=== PATIENT | female | born 1980 | race African-American/Black ===

== ENCOUNTER 2022-03-22 12:30 | Inpatient (IN) | payer SELFPAY ==
[~2022-03-22 12:30] MED LIST: ISOVUE-370 76%-LOCM 1 ML ONE; Tenecteplase 50 MG - STEMI KIT ONE
[2022-03-22 12:53] LABS: #Basophils 0.1 thou/uL (0.0-0.2); #Eosinphils 0.5 thou/uL (0.0-0.7); #Lymphocytes 2.2 thou/uL (1.20-3.40); #Monocytes 0.5 thou/uL (0.11-0.59); #Neutrophils 5.3 thou/uL (1.40-6.50); %Basophils 1.1 % (0.0-1.0); %Eosinophils 6.3 % (0.0-10.0); %Lymphocytes 25.8 % (21.0-51.0); %Monocytes 5.3 % (0.0-10.0); %Neutrophils 61.5 % (42.0-75.0); Hemoglobin 14.1 g/dL (12.0-16.0); Mean Corpuscular Hemoglobin 31.3 pg (27.0-31.0); Mean Corpuscular Volume 91.9 fL (78.0-98.0); Mean Platelet Volume 6.6 fL (7.4-10.4); Platelet Count 403 thou/uL (130-400); RBC Distribution Width 11.8 % (11.5-14.5); Red Blood Cell (RBC) Count 4.52 mill/uL (4.20-5.40); White Blood Cell (WBC) Count 8.6 thou/uL (4.8-10.8)
[2022-03-22 13:03] LABS: Prothrombin Time 13.4 sec (12.0-14.7)
[2022-03-22 13:13] LABS: Anion Gap 14 mmol/L (10-20); BUN (Urea Nitrogen) 10 mg/dL (7.0-18.7); Calc. Creatinine Clearance 0 mL/min (70-130); Carbon Dioxide 24 mmol/L (22-29); Chloride 106 mmol/L (98-107); Potassium 3.5 mmol/L (3.5-5.1); Sodium 140 mmol/L (136-145)
[2022-03-22 13:14] LABS: ALT (SGPT) 21 U/L (8-55); AST (SGOT) 18 U/L (5-34); Albumin 4.1 g/dL (3.5-5.0); Alkaline Phosphatase 92 U/L (40-110); Bilirubin, Total 0.5 mg/dL (0.2-1.2); CK (CPK) 72 U/L (29-168); Calcium 9.6 mg/dL (7.8-10.44); Estimated GFR 101; Globulin 3.4 g/dL (2.4-3.5); Glucose 166 mg/dL (70-105); Protein, Total 7.5 g/dL (6.0-8.3)
[2022-03-22] MEDS ORDERED: hydrALAZINE 20 MG/ML VIAL ONE (13:20)
[2022-03-22] MEDS ORDERED: Dextrose 50% Abboject 50 ML SYRINGE SLOW IVP PRN (14:56)
[2022-03-22] MEDS ORDERED: Dextrose 5% in Water 1,000 ML IV PRN (14:56)
[2022-03-22 15:08] LABS: #Basophils 0.2 thou/uL (0.0-0.2); #Eosinphils 0.4 thou/uL (0.0-0.7); #Lymphocytes 2.9 thou/uL (1.20-3.40); #Monocytes 0.5 thou/uL (0.11-0.59); #Neutrophils 5.8 thou/uL (1.40-6.50); %Basophils 1.7 % (0.0-1.0); %Eosinophils 4.5 % (0.0-10.0); %Lymphocytes 29.7 % (21.0-51.0); %Monocytes 4.7 % (0.0-10.0); %Neutrophils 59.4 % (42.0-75.0); Hemoglobin 14.8 g/dL (12.0-16.0); Mean Corpuscular HGB CONC 34.1 g/dL (32.0-36.0); Mean Corpuscular Hemoglobin 31.3 pg (27.0-31.0); Mean Corpuscular Volume 91.7 fL (78.0-98.0); Mean Platelet Volume 6.5 fL (7.4-10.4); Platelet Count 423 thou/uL (130-400); RBC Distribution Width 11.9 % (11.5-14.5); Red Blood Cell (RBC) Count 4.74 mill/uL (4.20-5.40); White Blood Cell (WBC) Count 9.7 thou/uL (4.8-10.8)
[2022-03-22 15:23] LABS: Prothrombin Time 13.4 sec (12.0-14.7)
[2022-03-22 15:30] LABS: ALT (SGPT) 20 U/L (8-55); AST (SGOT) 16 U/L (5-34); Alkaline Phosphatase 91 U/L (40-110); Anion Gap 15 mmol/L (10-20); BUN (Urea Nitrogen) 8 mg/dL (7.0-18.7); Bilirubin, Total 0.5 mg/dL (0.2-1.2); Calc. Creatinine Clearance 0 mL/min (70-130); Calcium 9.8 mg/dL (7.8-10.44); Carbon Dioxide 22 mmol/L (22-29); Chloride 106 mmol/L (98-107); Estimated GFR 109; Globulin 3.4 g/dL (2.4-3.5); Glucose 134 mg/dL (70-105); Potassium 3.5 mmol/L (3.5-5.1); Protein, Total 7.4 g/dL (6.0-8.3); Sodium 139 mmol/L (136-145)
[2022-03-22] MEDS ORDERED: predniSONE 20 MG TAB PO SCH (16:15)
[2022-03-22] MEDS: methylPREDNISolone Sod Succ/PF 125 MG/2 ML VIAL IVP SCH (18:15)
[2022-03-23] MEDS: methylPREDNISolone Sod Succ/PF 125 MG/2 ML VIAL IVP SCH ×5 (00:20→23:12)
[2022-03-23] MEDS ORDERED: Communication Order-Pharmacy FS PRN (09:12)
[2022-03-23] MEDS: Pantoprazole 40 MG VIAL IVP SCH (09:54)
[2022-03-23] MEDS ORDERED: Amlodipine 10 MG TAB PO SCH ×2 (14:00→18:15)
[2022-03-23 15:44] LABS: ALT (SGPT) 16 U/L (8-55); AST (SGOT) 13 U/L (5-34); Albumin 4.1 g/dL (3.5-5.0); Alkaline Phosphatase 95 U/L (40-110); Anion Gap 16 mmol/L (10-20); BUN (Urea Nitrogen) 16 mg/dL (7.0-18.7); Bilirubin, Total 0.6 mg/dL (0.2-1.2); Calc. Creatinine Clearance 147 mL/min (70-130); Carbon Dioxide 23 mmol/L (22-29); Chloride 105 mmol/L (98-107); Estimated GFR 95; Globulin 3.6 g/dL (2.4-3.5); Glucose 192 mg/dL (70-105); Potassium 3.6 mmol/L (3.5-5.1); Protein, Total 7.7 g/dL (6.0-8.3); Sodium 140 mmol/L (136-145)
[2022-03-23 16:02] LABS: Hemoglobin A1c 7.6 % (4.0-6.0)
[2022-03-23 16:05] LABS: Cardiac Risk 5.7 (Less than 4.5)
[2022-03-23] MEDS: Carvedilol 25 MG TAB PO SCH ×2 (20:01→20:09)
[2022-03-23] MEDS: Atorvastatin Calcium 40 MG TAB PO SCH ×2 (20:01→20:11)
[2022-03-23] MEDS: niCARdipine 25 MG in Sodium Chloride 0.9% 250 ML 250 ML IVPB SCH (23:51)
[2022-03-24 04:18] LABS: ALT (SGPT) 14 U/L (8-55); AST (SGOT) 11 U/L (5-34); Alkaline Phosphatase 97 U/L (40-110); Anion Gap 15 mmol/L (10-20); BUN (Urea Nitrogen) 19 mg/dL (7.0-18.7); Bilirubin, Total 0.4 mg/dL (0.2-1.2); Calc. Creatinine Clearance 149 mL/min (70-130); Calcium 9.8 mg/dL (7.8-10.44); Carbon Dioxide 22 mmol/L (22-29); Chloride 106 mmol/L (98-107); Estimated GFR 96; Globulin 3.5 g/dL (2.4-3.5); Glucose 212 mg/dL (70-105); Potassium 3.7 mmol/L (3.5-5.1); Protein, Total 7.5 g/dL (6.0-8.3); Sodium 139 mmol/L (136-145)
[2022-03-24 04:48] LABS: Band 8 % (5-11); Hemoglobin 15.3 g/dL (12.0-16.0); Lymphocytes 4 % (21-51); MDiff Complete? YES; Mean Corpuscular HGB CONC 32.8 g/dL (32.0-36.0); Mean Corpuscular Hemoglobin 30.7 pg (27.0-31.0); Mean Corpuscular Volume 93.5 fL (78.0-98.0); Mean Platelet Volume 6.5 fL (7.4-10.4); Monocytes 2 % (0-10); Neutrophil 86 % (42-75); Platelet Count 457 thou/uL (130-400); RBC Distribution Width 12.3 % (11.5-14.5); Red Blood Cell (RBC) Count 4.97 mill/uL (4.20-5.40); White Blood Cell (WBC) Count 21.3 thou/uL (4.8-10.8)
[2022-03-24] MEDS: methylPREDNISolone Sod Succ/PF 125 MG/2 ML VIAL IVP SCH ×3 (05:09→17:44)
[2022-03-24] MEDS: Insulin Regular 300 UNITS/3 ML VIAL SC PRN ×4 (06:40→20:06)
[2022-03-24] MEDS: Amlodipine 10 MG TAB PO SCH (08:51)
[2022-03-24] MEDS: Pantoprazole 40 MG VIAL IVP SCH (08:51)
[2022-03-24] MEDS: Carvedilol 25 MG TAB PO SCH ×2 (08:51→20:04)
[2022-03-24] MEDS: niCARdipine 25 MG in Sodium Chloride 0.9% 250 ML 250 ML IVPB SCH (08:52)
[2022-03-24] MEDS ORDERED: hydrALAZINE 20 MG/ML VIAL SLOW IVP PRN (09:28)
[2022-03-24] MEDS ORDERED: metFORMIN 500 MG TAB PO SCH (10:00)
[2022-03-24] MEDS: metFORMIN 500 MG TAB PO SCH (17:44)
[2022-03-24] MEDS: Atorvastatin Calcium 40 MG TAB PO SCH (20:04)
[2022-03-25] MEDS: methylPREDNISolone Sod Succ/PF 125 MG/2 ML VIAL IVP SCH ×4 (00:21→17:31)
[2022-03-25 00:52] LABS: Amphetamine Not Detected (NotDetected); Barbiturates Screen Not Detected (NotDetected); Benzodiazepine Screen Not Detected (NotDetected); Cocaine Metabolite Screen Not Detected (NotDetected); Methadone Not Detected (NotDetected); Methamphetamine Not Detected (NotDetected); Opiate Screen Not Detected (NotDetected); Oxycodone Screen Not Detected (NotDetected); Phencyclidine (PCP) Not Detected (NotDetected); THC/Cannabinoid Screen Not Detected (NotDetected); Tricyclic Screen Not Detected (NotDetected)
[2022-03-25] MEDS: Insulin Regular 300 UNITS/3 ML VIAL SC PRN ×4 (06:14→21:03)
[2022-03-25 07:24] LABS: #Lymphocytes 1.1 thou/uL (1.20-3.40); #Monocytes 0.5 thou/uL (0.11-0.59); #Neutrophils 17.3 thou/uL (1.40-6.50); %Basophils 0.2 % (0.0-1.0); %Eosinophils 0.2 % (0.0-10.0); %Lymphocytes 5.9 % (21.0-51.0); %Monocytes 2.4 % (0.0-10.0); %Neutrophils 91.2 % (42.0-75.0); Hemoglobin 15.2 g/dL (12.0-16.0); Mean Corpuscular HGB CONC 34.2 g/dL (32.0-36.0); Mean Corpuscular Hemoglobin 31.8 pg (27.0-31.0); Mean Corpuscular Volume 93.1 fL (78.0-98.0); Mean Platelet Volume 6.5 fL (7.4-10.4); Platelet Count 444 thou/uL (130-400); RBC Distribution Width 12.3 % (11.5-14.5); Red Blood Cell (RBC) Count 4.78 mill/uL (4.20-5.40); White Blood Cell (WBC) Count 18.9 thou/uL (4.8-10.8)
[2022-03-25 07:47] LABS: Anion Gap 16 mmol/L (10-20); BUN (Urea Nitrogen) 33 mg/dL (7.0-18.7); Calc. Creatinine Clearance 124 mL/min (70-130); Calcium 9.5 mg/dL (7.8-10.44); Carbon Dioxide 22 mmol/L (22-29); Chloride 107 mmol/L (98-107); Estimated GFR 75; Glucose 193 mg/dL (70-105); Potassium 4.1 mmol/L (3.5-5.1); Sodium 141 mmol/L (136-145)
[2022-03-25] MEDS: Amlodipine 10 MG TAB PO SCH (08:49)
[2022-03-25] MEDS: metFORMIN 500 MG TAB PO SCH (08:49)
[2022-03-25] MEDS: Pantoprazole 40 MG VIAL IVP SCH (08:50)
[2022-03-25] MEDS: Carvedilol 25 MG TAB PO SCH ×2 (08:50→21:02)
[2022-03-25] MEDS ORDERED: Losartan 25 MG TAB PO SCH (09:00)
[2022-03-25] MEDS ORDERED: Lorazepam 0.5 MG TAB PO SCH ×2 (09:45→10:30)
[2022-03-25 13:07] VITALS: BMI 35.4
[2022-03-25 14:30] LABS: ANA Symphony (Qualitative) Equivocal: See Note (Negative); ANA Symphony (Quantitative) 0.7 Ratio (< 0.7 Negative); dsDNA IgG Antibody 0.9 IU/mL (<10 Negative)
[2022-03-25 14:42] LABS: Cytoplasmic (C-ANCA) <1:20 titer (Neg:<1:20); Perinuclear (P-ANCA) <1:20 titer (Neg:<1:20)
[2022-03-25] MEDS: Atorvastatin Calcium 40 MG TAB PO SCH (21:02)
[2022-03-26] MEDS: Insulin Regular 300 UNITS/3 ML VIAL SC PRN ×3 (06:21→21:57)
[2022-03-26] MEDS ORDERED: methylPREDNISolone Sod Succ/PF 125 MG/2 ML VIAL IVP SCH (09:00)
[2022-03-26] MEDS: Losartan 25 MG TAB PO SCH (09:32)
[2022-03-26] MEDS: Pantoprazole 40 MG VIAL IVP SCH (09:32)
[2022-03-26] MEDS: metFORMIN 500 MG TAB PO SCH (09:32)
[2022-03-26] MEDS: Carvedilol 25 MG TAB PO SCH ×2 (09:33→21:57)
[2022-03-26] MEDS: Amlodipine 10 MG TAB PO SCH (09:33)
[2022-03-26] MEDS ORDERED: Aspirin Chewable 81 MG TAB PO SCH (16:15)
[2022-03-26 16:18] LABS: INR-International Normal Ratio 1.1; PTT 33.2 sec (22.9-36.1); Prothrombin Time 14.4 sec (12.0-14.7)
[2022-03-26 16:19] LABS: D-Dimer Test 0.45 *mcg/mL (0.27-0.43)
[2022-03-26 16:20] LABS: Complement-C4 31.9 mg/dL (15-57)
[2022-03-26 16:49] LABS: Homocysteine 8.96 umol/L (5.08-15.39); Thyroid Stimulating Hormone 0.1422 uIU/mL (0.35-4.94)
[2022-03-26] MEDS: Atorvastatin Calcium 40 MG TAB PO SCH (21:57)
[2022-03-27] MEDS ORDERED: Aspirin 81 mg Enteric Coated Tablet PO SCH (09:00)
[2022-03-27] MEDS: Losartan 25 MG TAB PO SCH (09:41)
[2022-03-27] MEDS: Amlodipine 10 MG TAB PO SCH (09:41)
[2022-03-27] MEDS: metFORMIN 500 MG TAB PO SCH (09:41)
[2022-03-27] MEDS: Pantoprazole 40 MG VIAL IVP SCH (09:41)
[2022-03-27] MEDS: Aspirin Chewable 81 MG TAB PO SCH (09:42)
[2022-03-27] MEDS: Carvedilol 25 MG TAB PO SCH ×2 (09:57→20:53)
[2022-03-27] MEDS: Insulin Regular 300 UNITS/3 ML VIAL SC PRN ×2 (12:43→17:26)
[2022-03-27] MEDS: Atorvastatin Calcium 40 MG TAB PO SCH (20:53)
[2022-03-28] MEDS: Amlodipine 10 MG TAB PO SCH (08:50)
[2022-03-28] MEDS: Pantoprazole 40 MG VIAL IVP SCH (08:51)
[2022-03-28] MEDS: Losartan 25 MG TAB PO SCH (08:51)
[2022-03-28] MEDS: Carvedilol 25 MG TAB PO SCH ×2 (08:51→21:02)
[2022-03-28] MEDS: metFORMIN 500 MG TAB PO SCH (10:38)
[2022-03-28] MEDS: Aspirin Chewable 81 MG TAB PO SCH (10:38)
[2022-03-28 10:55] LABS: CCP IgG Antibody 1.3 EliAU/mL (<7 Negative); Cardiolipin IgA Ab 2.5 APL-U/mL (<14 Negative); Cardiolipin IgG Ab 1.1 GPL-U/mL (<10 Negative); Cardiolipin IgM Ab 6.4 MPL-U/mL (<10 Negative); EliA APS New Method **** NEW METHOD ****; Rheumatoid Factor IgM Antibody 4.9 IU/mL (<3.5 Negative); SSA/Ro IgG Antibody 2.3 EliAU/mL (<7 Negative); SSB/La IgG Antibody Less than 0.3 EliAU/mL (<7 Negative)
[2022-03-28 10:58] LABS: RNP70 IgG Antibody Less than 0.3 EliAU/mL (<7 Negative)
[2022-03-28] MEDS ORDERED: PROPOFOL 200 MG/20 ML VIAL ONE (14:10)
[2022-03-28] MEDS ORDERED: Lidocaine 1% w/Epinephrine 1:100K 20 ML VIAL ONE (15:45)
[2022-03-28] MEDS ORDERED: Enoxaparin Sodium 40 MG/0.4 ML SYRINGE SC SCH (21:00)
[2022-03-28] MEDS: Atorvastatin Calcium 40 MG TAB PO SCH (21:02)
[2022-03-29] MEDS: Acetaminophen 325 MG TAB PO PRN (09:39)
[2022-03-29] MEDS: Carvedilol 25 MG TAB PO SCH ×2 (09:41→21:18)
[2022-03-29] MEDS: Amlodipine 10 MG TAB PO SCH (09:41)
[2022-03-29] MEDS: Losartan 25 MG TAB PO SCH (09:41)
[2022-03-29] MEDS: Aspirin Chewable 81 MG TAB PO SCH (09:41)
[2022-03-29] MEDS: Enoxaparin Sodium 40 MG/0.4 ML SYRINGE SC SCH (09:42)
[2022-03-29] MEDS: metFORMIN 500 MG TAB PO SCH (09:42)
[2022-03-29] MEDS: Pantoprazole 40 MG VIAL IVP SCH (09:42)
[2022-03-29] MEDS: Insulin Regular 300 UNITS/3 ML VIAL SC PRN (13:22)
[2022-03-29] MEDS ORDERED: Senokot 8.6 MG TAB PO PRN (13:40)
[2022-03-29] MEDS ORDERED: Docusate 100 MG CAP PO PRN (13:41)
[2022-03-29] MEDS ORDERED: Clopidogrel Bisulfate 75 MG TAB PO SCH (16:30)
[2022-03-29] MEDS: Atorvastatin Calcium 40 MG TAB PO SCH (21:18)
[2022-03-30] MEDS: Losartan 25 MG TAB PO SCH (08:33)
[2022-03-30] MEDS: Carvedilol 25 MG TAB PO SCH ×2 (08:33→21:18)
[2022-03-30] MEDS: Amlodipine 10 MG TAB PO SCH (08:33)
[2022-03-30] MEDS: metFORMIN 500 MG TAB PO SCH (08:33)
[2022-03-30] MEDS: Clopidogrel Bisulfate 75 MG TAB PO SCH (08:33)
[2022-03-30] MEDS: Polyethylene Glycol 3350 17 GM Packet PO SCH (08:34)
[2022-03-30] MEDS: Pantoprazole 40 MG VIAL IVP SCH (08:34)
[2022-03-30] MEDS: Aspirin Chewable 81 MG TAB PO SCH (08:34)
[2022-03-30] MEDS: Enoxaparin Sodium 40 MG/0.4 ML SYRINGE SC SCH (08:34)
[2022-03-30 13:06] LABS: Factor VIII Test 223.1 % ACTIVE (56-157)
[2022-03-30 14:12] LABS: Protein C Activity 143 % (78-152)
[2022-03-30] MEDS: Atorvastatin Calcium 40 MG TAB PO SCH (21:18)
[2022-03-31] MEDS: Insulin Regular 300 UNITS/3 ML VIAL SC PRN (05:56)
[2022-03-31] MEDS: Losartan 25 MG TAB PO SCH (10:19)
[2022-03-31] MEDS: Enoxaparin Sodium 40 MG/0.4 ML SYRINGE SC SCH (10:19)
[2022-03-31] MEDS: Amlodipine 10 MG TAB PO SCH (10:20)
[2022-03-31] MEDS: Carvedilol 25 MG TAB PO SCH ×2 (10:20→20:27)
[2022-03-31] MEDS: metFORMIN 500 MG TAB PO SCH (10:20)
[2022-03-31] MEDS: Clopidogrel Bisulfate 75 MG TAB PO SCH (10:20)
[2022-03-31] MEDS: Aspirin Chewable 81 MG TAB PO SCH (10:20)
[2022-03-31] MEDS: Polyethylene Glycol 3350 17 GM Packet PO SCH (10:21)
[2022-03-31] MEDS: Pantoprazole 40 MG VIAL IVP SCH (10:22)
[2022-03-31] MEDS: Atorvastatin Calcium 40 MG TAB PO SCH (20:26)
[2022-04-01] MEDS: Insulin Regular 300 UNITS/3 ML VIAL SC PRN (05:46)
[2022-04-01] MEDS: Enoxaparin Sodium 40 MG/0.4 ML SYRINGE SC SCH (09:31)
[2022-04-01] MEDS: Aspirin Chewable 81 MG TAB PO SCH (09:31)
[2022-04-01] MEDS: Carvedilol 25 MG TAB PO SCH ×2 (09:31→21:08)
[2022-04-01] MEDS: Amlodipine 10 MG TAB PO SCH (09:32)
[2022-04-01] MEDS: Losartan 25 MG TAB PO SCH (09:32)
[2022-04-01] MEDS: metFORMIN 500 MG TAB PO SCH (09:32)
[2022-04-01] MEDS: Clopidogrel Bisulfate 75 MG TAB PO SCH (09:32)
[2022-04-01] MEDS: Polyethylene Glycol 3350 17 GM Packet PO SCH (09:35)
[2022-04-01] MEDS: Pantoprazole 40 MG VIAL IVP SCH (09:36)
[2022-04-01 11:32] LABS: #Eosinphils 0.2 thou/uL (0.0-0.7); #Lymphocytes 2.4 thou/uL (1.20-3.40); %Basophils 0.2 % (0.0-1.0); %Eosinophils 1.6 % (0.0-10.0); %Lymphocytes 22.9 % (21.0-51.0); %Monocytes 9.1 % (0.0-10.0); %Neutrophils 66.2 % (42.0-75.0); Hemoglobin 14.1 g/dL (12.0-16.0); Mean Corpuscular HGB CONC 33.7 g/dL (32.0-36.0); Mean Corpuscular Hemoglobin 31.5 pg (27.0-31.0); Mean Corpuscular Volume 93.4 fL (78.0-98.0); Mean Platelet Volume 6.9 fL (7.4-10.4); Platelet Count 312 thou/uL (130-400); RBC Distribution Width 11.8 % (11.5-14.5); Red Blood Cell (RBC) Count 4.48 mill/uL (4.20-5.40); White Blood Cell (WBC) Count 10.5 thou/uL (4.8-10.8)
[2022-04-01 11:53] LABS: ALT (SGPT) 18 U/L (8-55); AST (SGOT) 14 U/L (5-34); Albumin 3.3 g/dL (3.5-5.0); Alkaline Phosphatase 94 U/L (40-110); Anion Gap 13 mmol/L (10-20); BUN (Urea Nitrogen) 12 mg/dL (7.0-18.7); Calc. Creatinine Clearance 158 mL/min (70-130); Calcium 9.1 mg/dL (7.8-10.44); Carbon Dioxide 24 mmol/L (22-29); Chloride 101 mmol/L (98-107); Estimated GFR 101; Globulin 3.2 g/dL (2.4-3.5); Glucose 187 mg/dL (70-105); Potassium 4.4 mmol/L (3.5-5.1); Protein, Total 6.5 g/dL (6.0-8.3); Sodium 134 mmol/L (136-145)
[2022-04-01] MEDS: Acetaminophen 325 MG TAB PO PRN (18:36)
[2022-04-01] MEDS: Atorvastatin Calcium 40 MG TAB PO SCH (21:08)
[2022-04-02] MEDS: metFORMIN 500 MG TAB PO SCH (09:37)
[2022-04-02] MEDS: Clopidogrel Bisulfate 75 MG TAB PO SCH (09:37)
[2022-04-02] MEDS: Enoxaparin Sodium 40 MG/0.4 ML SYRINGE SC SCH (09:37)
[2022-04-02] MEDS: Losartan 25 MG TAB PO SCH (09:37)
[2022-04-02] MEDS: Polyethylene Glycol 3350 17 GM Packet PO SCH (09:38)
[2022-04-02] MEDS: Aspirin Chewable 81 MG TAB PO SCH (09:38)
[2022-04-02] MEDS: Carvedilol 25 MG TAB PO SCH (09:38)
[2022-04-02] MEDS: Amlodipine 10 MG TAB PO SCH (09:38)
[2022-04-02] MEDS: Pantoprazole 40 MG VIAL IVP SCH (09:39)
[2022-04-02 12:06] VITALS: BP 105/69; TEMP 97.1
[2022-04-02] MEDS: Insulin Regular 300 UNITS/3 ML VIAL SC PRN (12:35)
[2022-04-04 15:38] LABS: Activated Protein C Resistance 2.2 ratio (.)
[2022-04-04 16:04] LABS: HEX PHOS LA Tube 1 45.6 SEC; HEX PHOS LA Tube 2 39.7 SEC
== END 2022-04-02 14:13 | disposition home or self-care (01) | DRG 41 ==
LOC: ERS 12:30 → CCU 14:49 → NEURO 03-24 19:02
PROVIDERS: ADMIT Family Medicine; ATTEND Student in an Organized Health Care Education/Training Program
PROC: 3E03317 Introduction of Other Thrombolytic into Peripheral Vein, Percutaneous Approach (ICD-10-PCS; principal; 2022-03-22)
PROC: 0JH632Z Insertion of Monitoring Device into Chest Subcutaneous Tissue and Fascia, Percutaneous Approach (ICD-10-PCS; 2022-03-28)
PROC: B24BZZ4 Ultrasonography of Heart with Aorta, Transesophageal (ICD-10-PCS; 2022-03-28)
DX: I63.312 Cerebral infarction due to thrombosis of left middle cerebral artery (principal); G81.91 Hemiplegia, unspecified affecting right dominant side; Q21.1 Atrial septal defect; R29.706 NIHSS score 6; Z20.822 Contact with and (suspected) exposure to COVID-19; I08.1 Rheumatic disorders of both mitral and tricuspid valves; I70.0 Atherosclerosis of aorta; R29.810 Facial weakness; K21.9 Gastro-esophageal reflux disease without esophagitis; I10 Essential (primary) hypertension; E11.9 Type 2 diabetes mellitus without complications; F17.210 Nicotine dependence, cigarettes, uncomplicated; R47.81 Slurred speech; R47.01 Aphasia; E78.5 Hyperlipidemia, unspecified; E66.01 Morbid (severe) obesity due to excess calories; D72.829 Elevated white blood cell count, unspecified; Z68.35 Body mass index [BMI] 35.0-35.9, adult; Z88.0 Allergy status to penicillin; Z79.899 Other long term (current) drug therapy; Z82.49 Family history of ischemic heart disease and other diseases of the circulatory system; Z83.3 Family history of diabetes mellitus
CPT/HCPCS: 33285; 36415; 36416; 70450; 70496; 70498; 70551; 74230; 80048; 80053; 80061; 80306; 82550; 82595; 82607; 82746; 83036; 83090; 83520; 84443; 84484; 85025; 85240; 85300; 85303; 85305; 85307; 85379; 85598; 85610; 85652; 85730; 86015; 86037; 86038; 86140; 86147; 86160; 86200; 86225; 86235; 93005; 93306; 93312; 96374; C1764; C9113; J0360; J1650; J1815; J2704; J2930; J3101; J7050; Q9966; U0003; U0005